=== PATIENT | female | born 1980 | race Caucasian/White ===

== ENCOUNTER → 2020-04-30 | Outpatient (CLI) | payer BC | LOC: LAB 12:51 | PROVIDERS: ATTEND Nurse Anesthetist, Certified Registered | DX: Z01.818 Encounter for other preprocedural examination (principal); Z20.828 Contact with and (suspected) exposure to other viral communicable diseases | CPT/HCPCS: U0003 ==

== ENCOUNTER → 2020-05-06 | Day surgery (SDC) | payer BC ==
[~2020-05-06] MED LIST: BUPR150T15 PO; IPRATRPIUM/ALBUTEROL 0.5/2.5MG 3 ML NEBU. NEB PRN; IV RINGERS SOLUTION,LACTATED 1,000 ML IV SCH; LIDOCAINE 2% PF 5 ML VIAL. ONE; MIDAZOLAM HCL PF 2 MG/2 ML VIAL. IV ONE; ONDANSETRON PF 4 MG/2 ML VIAL. IV PRN; PROPOFOL 10,000 MCG/ML (20ML) VIAL IV ONE
[2020-05-06 10:12] LABS: U PREG PATIENT NEGATIVE (NEG)
[2020-05-06 11:45] VITALS: BP 130/77
== END | disposition home or self-care (01) ==
LOC: SURG 09:00
PROVIDERS: ATTEND Emergency Medicine
DX: Z12.11 Encounter for screening for malignant neoplasm of colon (principal); Z85.038 Personal history of other malignant neoplasm of large intestine; Z88.0 Allergy status to penicillin; Z88.5 Allergy status to narcotic agent
CPT/HCPCS: 45378; 81025; J2001; J2704; J7120; 45380

== ENCOUNTER → 2021-10-02 | Outpatient (CLI) | payer BC ==
[2020-05-06 11:45] VITALS: BP 130/77
[~2021-10-02] MED LIST changes: -IPRATRPIUM/ALBUTEROL 0.5/2.5MG 3 ML NEBU. NEB PRN; -IV RINGERS SOLUTION,LACTATED 1,000 ML IV SCH; -LIDOCAINE 2% PF 5 ML VIAL. ONE; -MIDAZOLAM HCL PF 2 MG/2 ML VIAL. IV ONE; -ONDANSETRON PF 4 MG/2 ML VIAL. IV PRN; -PROPOFOL 10,000 MCG/ML (20ML) VIAL IV ONE
--- NOTE | 2021-10-03 17:29 | RAD ---
EXAM: XR BILAT FEET 3 VIEWS 10/02/2021 10:53 AM CLINICAL INDICATION: Bilateral plantar pain. COMPARISON: None TECHNIQUE: AP, oblique, and lateral views of the right left foot FINDINGS: No acute fracture. Mild hallux valgus on the right. Joint spaces are maintained and bone m ineralization is normal. There are prominent plantar calcaneal enthesophytes bilaterally. Soft tissue s normal. IMPRESSION: No acute osseous abnormality. Prominent plantar calcaneal enthesophytes bilaterally. Electronically signed by: Macarena Kearney MD (10/03/2021 5:26 PM) [id number]
== END ==
LOC: RAD 10:27
PROVIDERS: ATTEND Podiatrist Foot Surgery
DX: M77.32 Calcaneal spur, left foot (principal); M77.31 Calcaneal spur, right foot; M20.11 Hallux valgus (acquired), right foot; M72.2 Plantar fascial fibromatosis
CPT/HCPCS: 73630-50